=== PATIENT | male | born 1950 | race American Indian/Alaskan Native ===

== ENCOUNTER 2017-10-14 20:45 | Emergency (ER) | payer MEDICARE ==
[2017-10-14 20:45] VITALS: BMI 20.5
[2017-10-14 21:01] VITALS: TEMP 98.2
[2017-10-14 22:02] LABS: BASO % 0.2 % (0.0-2.0); EOS % 0.4 % (0.0-4.0); HEMATOCRIT 31.3 % (35.0-51.0); LYMPH # 0.5 K/uL (1.0-4.3); LYMPH % 4.6 % (20.0-40.0); MEAN CELL VOLUME 81.3 fl (80.0-94.0); MEAN CORPUSCULAR HEMOGLOBIN 25.4 pg (27.0-31.0); MEAN CORPUSCULAR HGB CONC 31.2 g/dL (33.0-37.0); MONO # 0.3 K/uL (0.0-0.8); MONO % 2.9 % (0.0-10.0); NEUT # 10.8 K/uL (1.8-7.0); NEUT % 91.9 % (50.0-75.0); PLATELET COUNT 352 K/uL (130-400); RED CELL DISTRIBUTION WIDTH 18.3 % (11.5-14.5); WHITE BLOOD COUNT 11.7 K/uL (4.8-10.8)
[2017-10-14] MEDS ORDERED: Iohexol 240 (50 ml) PO ONE (22:12)
[2017-10-14 22:18] LABS: ALKALINE PHOSPHATASE 100 U/L (38-126); ALT/SGPT 24 U/L (21-72); AST/SGOT 22 U/L (17-59); BILIRUBIN,TOTAL 0.2 mg/dl (0.2-1.3); BLOOD UREA NITROGEN 22 mg/dl (9-20); CALCIUM 8.9 mg/dL (8.4-10.2); CARBON DIOXIDE 27 mmol/L (22-30); CHLORIDE 103 mmol/L (98-107); GFR AFRICAN-AMERICAN > 60; GLUCOSE,RANDOM 97 mg/dL (75-110); LIPASE 118 U/L (23-300); SODIUM 140 mmol/l (132-148); TOTAL PROTEIN 7.2 G/DL (6.3-8.2)
[2017-10-14] MEDS ORDERED: Morphine 4 MG/ML VIAL ONE (22:22)
[2017-10-14] MEDS ORDERED: Morphine 4 MG/ML VIAL IVP ONE (22:45)
--- NOTE | 2017-10-14 23:21 | ED PDOC ---
HPI: Abdomen Time Seen by Provider: 10/14/17 21:02 Chief Complaint (Nursing): Abdominal Pain Chief Complaint (Provider): Abdominal Pain History Per: Patient History/Exam Limitations: no limitations Onset/Duration Of Symptoms: Days (2 days ago) Current Symptoms Are (Timing): Still Present Location Of Pain/Discomfort: Diffuse Additional Complaint(s): 67 y/o male with a past medical history of hypertension and "colon issues", brought in by EMS, presents to the ED complaining of abdominal pain, with an onset of 2 days ago. Patient was recently seen at [facility] about a week ago, and was discharged with a prescription for Percocet. Patient also reports of having left inguinal hernia repair with perforation, a Colostomy, that was later reversed, and endoscopy in the past, which showed a large gastroduodenal ulcer. Of note, patient denies any fever, chills, nausea or vomiting. Past Medical History Reviewed: Historical Data, Nursing Documentation, Vital Signs Vital Signs: Last Vital Signs Temp 98.2 F 10/15/17 04:32 Pulse 90 10/15/17 04:32 Resp 16 10/15/17 04:32 BP 176/95 H 10/15/17 04:32 Pulse Ox 96 10/15/17 04:32 - Medical History PMH: HTN Denies: Chronic Kidney Disease Other PMH: "Colon Issues" - Surgical History Surgical History: Endoscopy Other surgeries: left inguinal hernia repair with perforation. Colostomy, that was later reversed - Family History Family History: States: Unknown Family Hx - Social History Current smoker - smoking cessation education provided: Yes (some days) Alcohol: Occasional - Immunization History Hx Tetanus Toxoid Vaccination: No Hx Influenza Vaccination: No Hx Pneumococcal Vaccination: No - Home Medications Home Medications: Ambulatory Orders Medication Instructions Recorded Pantoprazole Sodium [Protonix] 40 mg PO DAILY #30 ect 10/10/17 Saccharomyces Boulardi [Florastor] 250 mg PO BID #60 cap 10/10/17 Sucralfate [Carafate Tab] 1 gm PO QID #120 tab 10/10/17 amLODIPine [Norvasc] 10 mg PO DAILY #30 tab 10/10/17 oxyCODONE/Acetaminophen [Percocet 1 tab PO TID PRN #12 tab 10/11/17 5/325 mg Tab] Pantoprazole Sodium [Protonix] 40 mg PO BID #28 ect 10/15/17 Sucralfate [Carafate Oral Susp] 1 gm PO QID #28 g 10/15/17 - Allergies Allergies/Adverse Reactions: Allergies Allergy/AdvReac Type Severity Reaction Status Date / Time No Known Allergies Allergy Verified 10/10/17 21:37 Review of Systems ROS Statement: Except As Marked, All Systems Reviewed And Found Negative Constitutional: Negative for: Fever, Chills Gastrointestinal: Positive for: Abdominal Pain. Negative for: Nausea, Vomiting Physical Exam - Reviewed Nursing Documentation Reviewed: Yes Vital Signs Reviewed: Yes - Physical Exam Appears: Positive for: Uncomfortable Head Exam: Positive for: ATRAUMATIC, NORMOCEPHALIC Skin: Positive for: Normal Color, Warm Eye Exam: Positive for: Normal appearance, EOMI, PERRL ENT: Positive for: Normal ENT Inspection Neck: Positive for: Normal, Painless ROM, Supple Cardiovascular/Chest: Positive for: Regular Rate, Rhythm. Negative for: Murmur Respiratory: Positive for: Normal Breath Sounds. Negative for: Respiratory Distress Gastrointestinal/Abdominal: Positive for: Tenderness (diffuse ) Back: Positive for: Normal Inspection Extremity: Positive for: Normal ROM. Negative for: Pedal Edema, Deformity - Laboratory Results Result Diagrams: 10/14/17 21:58 10/14/17 21:58 - ECG O2 Sat by Pulse Oximetry: 100 (RA) Pulse Ox Interpretation: Normal Medical Decision Making Medical Decision Making: Time: --21:29 Impression: --67 y/o male with recurrent abdominal pain in setting of previous colon disease Plan: --CT ABD Pelvis PO &IV Contrast --ECG --ED UDip --Labs --Iohexol 50ml --Morphine 4mg --Heplock Insertion --Urinalysis Reassess --01:16 FINDINGS:CT Abdomen and Pelvis With Intravenous Contrast Lower thorax: No acute findings. ABDOMEN: Liver: Unremarkable. No mass. Gallbladder and bile ducts: Mild intra-and extrahepatic bile duct dilation. Comm the common bile duct measures 8 mm. No distal common bile duct stone. Pancreas: The pancreatic duct is mildly dilated measuring 5 mm in the pancreatic head. Spleen: Unremarkable. No splenomegaly. Adrenals: Unremarkable. No mass. Kidneys and ureters: There is a simple cyst in the left kidney. There is a simple cyst in the right kidney. No hydronephrosis. Stomach and bowel: Postsurgical changes in the stomach and proximal small bowel suggesting gastrojejunostomy. The stomach and proximal small bowel are thick walled. There is a linear tract of high density in the left upper quadrant, image 17-22 series 2. This raises suspicion for possible bowel leak. The splenic flexure and descending colon are thick walled. The colon is limited by suboptimal contrast opacification. Moderately distended loop of proximal small bowel measuring up to 4 cm in diameter probably secondary to localized ileus. PELVIS: Bladder: Unremarkable. No mass. Reproductive: Unremarkable as visualized. ABDOMEN and PELVIS: Intraperitoneal space: Diffuse edema in the mesentery the abdomen and pelvis. No free air. No significant fluid collection. Bones/joints: No acute fracture. No dislocation. Soft tissues: Unremarkable. Vasculature: The aorta demonstrates moderate atherosclerotic calcification. No abdominal aortic aneurysm. Lymph nodes: Unremarkable. No enlarged lymph nodes. IMPRESSION: Postsurgical changes in the stomach and proximal small bowel suggesting gastrojejunostomy. Significant edema involving the stomach and bowel in the left upper quadrant. Linear tract tract of high density raising suspicion for possible bowel/anastomotic leak. Clinical correlation and followup recommended --01:51 Provider spoke with the certified ophthalmic surgical assistant pondman, Dr. Felix, for a consult. --04:59 patient evaluated by the certified ophthalmic surgical assistant, Dr. felix, and is stable for discharge under their perspective. diagnosis: peptic ulcer disease and abdominal pain instructions: follow up with original surgeon at [facility] Scribe Attestation: Documented by Ramsey Reyes acting as a scribe for Phani Torres MD. Disposition - Clinical Impression Clinical Impression: Abdominal pain, Peptic ulcer - Patient ED Disposition Is Patient to be Admitted: No Discussed With : Sybil Felix Doctor Will See Patient In The: ED - Disposition Disposition: Routine/Home Disposition Time: 04:59 (patient evaluated by the surgica resident dr. felix and is stable for discharge under their perspective) Condition: STABLE Prescriptions: Pantoprazole Sodium [Protonix] 40 mg PO BID #28 ect Sucralfate [Carafate Oral Susp] 1 gm PO QID #28 g Instructions: Peptic Ulcer (ED) Forms: @Pay (Armenian)
[2017-10-14] MEDS ORDERED: Iohexol 300 100 ML IJ ONE (23:51)
[2017-10-15 01:12] LABS: RBC URINE 1 /hpf (0-3); URINE BACTERIA RARE (<OCC); URINE BILIRUBIN NEGATIVE (NEGATIVE); URINE BLOOD NEGATIVE (NEGATIVE); URINE COLOR YELLOW (YELLOW); URINE GLUCOSE (UA) NEG (Normal); URINE KETONE NEGATIVE (NEGATIVE); URINE LEUKOCYTE ESTERASE NEG Leu/uL (Negative); URINE PROTEIN NEGATIVE (NEGATIVE); URINE UROBILINOGEN 0.2-1.0 mg/dL (0.2-1.0); WBC URINE 1 /hpf (0-5)
--- NOTE | 2017-10-15 01:16 | CT ---
EXAM: CT Abdomen and Pelvis With Intravenous Contrast CLINICAL HISTORY: 67 years old, male; Pain; Abdominal pain; Generalized; Prior surgery; Surgery date: 6+ months; Surgery type: Colon per patient. Hernia per patient; Additional info: Abd pain TECHNIQUE: Axial computed tomography images of the abdomen and pelvis with intravenous contrast. All CT scans at this facility use one or more dose reduction techniques, viz.: automated exposure control; ma/kV adjustment per patient size (including targeted exams where dose is matched to indication; i.e. head); or iterative reconstruction technique. Coronal and sagittal reformatted images were created and reviewed. CONTRAST: 90 mL of [id number] administered intravenously. COMPARISON: No relevant prior studies available. FINDINGS: Lower thorax: No acute findings. ABDOMEN: Liver: Unremarkable. No mass. Gallbladder and bile ducts: Mild intra-and extrahepatic bile duct dilation. Comm the common bile duct measures 8 mm. No distal common bile duct stone. Pancreas: The pancreatic duct is mildly dilated measuring 5 mm in the pancreatic head. Spleen: Unremarkable. No splenomegaly. Adrenals: Unremarkable. No mass. Kidneys and ureters: There is a simple cyst in the left kidney. There is a simple cyst in the right kidney. No hydronephrosis. Stomach and bowel: Postsurgical changes in the stomach and proximal small bowel suggesting gastrojejunostomy. The stomach and proximal small bowel are thick walled. There is a linear tract of high density in the left upper quadrant, image 17-22 series 2. This raises suspicion for possible bowel leak. The splenic flexure and descending colon are thick walled. The colon is limited by suboptimal contrast opacification. Moderately distended loop of proximal small bowel measuring up to 4 cm in diameter probably secondary to localized ileus. PELVIS: Bladder: Unremarkable. No mass. Reproductive: Unremarkable as visualized. ABDOMEN and PELVIS: Intraperitoneal space: Diffuse edema in the mesentery the abdomen and pelvis. No free air. No significant fluid collection. Bones/joints: No acute fracture. No dislocation. Soft tissues: Unremarkable. Vasculature: The aorta demonstrates moderate atherosclerotic calcification. No abdominal aortic aneurysm. Lymph nodes: Unremarkable. No enlarged lymph nodes. IMPRESSION: Postsurgical changes in the stomach and proximal small bowel suggesting gastrojejunostomy. Significant edema involving the stomach and bowel in the left upper quadrant. Linear tract tract of high density raising suspicion for possible bowel/anastomotic leak. Clinical correlation and followup recommended.
[2017-10-15 01:56] LABS: EOSINOPHIL 2 % (0-7); NEUTROPHIL 91 % (42-75); TOTAL CELLS COUNTED 100
[2017-10-15] MEDS ORDERED: Sucralfate 1 gm/10 ml Oral Susp UD PO STA (03:45)
--- NOTE | 2017-10-15 03:58 | CP.PCM.CON ---
History of Present Illness - History of Present Illness History of Present Illness: General Surgery Dr. 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 Pt was also seen in [facility] ED on 10/10 for the same abd pain. Pt has not filled or taken his PUD medication which is the cause of his continued pain. Pt was also instructed to see his previous surgeon for repair of the gastro-colonic fistula when discharged from [facility] inpatient and ED. Pt states pain has not changed in intensity, severity, or location. Pain described as burning sensation in epigastric/sub-sternal. Pt denies F/C, SOB, N/V. Pt admits to recent diarrhea but denies constipation. PMHx: HTN, PUD, non-compliance Meds: reviewed in chart NKDA PSHx: L inguinal hernia repair, ex- lap w/ colostomy 2/2 intra-op enterotomy, colostomy reversal SHx: homeless, occasional EtOH and tobacco use. denies drug use FHx: non-contributory Review of Systems - Review of Systems All systems: reviewed and no additional remarkable complaints except (see HPI) Past Patient History - Infectious Disease Hx of Infectious Diseases: None - Past Medical History & Family History Past Medical History?: Yes - Past Social History Alcohol: Occasional - CARDIAC Hx Hypertension: Yes - PULMONARY Hx Respiratory Disorders: No - NEUROLOGICAL Hx Neurological Disorder: No - HEENT Hx HEENT Problems: No - RENAL Hx Chronic Kidney Disease: No - ENDOCRINE/METABOLIC Hx Endocrine Disorders: No - HEMATOLOGICAL/ONCOLOGICAL Hx Blood Disorders: No - INTEGUMENTARY Hx Dermatological Problems: No - MUSCULOSKELETAL/RHEUMATOLOGICAL Hx Falls: No - GASTROINTESTINAL Hx Gastrointestinal Disorders: No - GENITOURINARY/GYNECOLOGICAL Hx Genitourinary Disorders: No - PSYCHIATRIC Hx Psychophysiologic Disorder: Yes Hx Substance Use: No (pt. denies) - SURGICAL HISTORY Hx Surgeries: No Other/Comment: Hernia repair. "they did something to my colon but i cant remember" - ANESTHESIA Hx Anesthesia: No Hx Anesthesia Reactions: No Hx Malignant Hyperthermia: No Meds Allergies/Adverse Reactions: Allergies Allergy/AdvReac Type Severity Reaction Status Date / Time No Known Allergies Allergy Verified 10/10/17 21:37 - Medications Medications: Current Medications Pantoprazole Sodium (Protonix Inj) 40 mg IVP STAT STA Stop: 10/15/17 03:46 Sucralfate (Carafate Oral Susp) 1 gm PO STAT STA Stop: 10/15/17 03:46 Physical Exam - Constitutional Appears: Non-toxic, No Acute Distress - Head Exam Head Exam: NORMAL INSPECTION - Eye Exam Eye Exam: Normal appearance - ENT Exam ENT Exam: Mucous Membranes Moist - Respiratory Exam Respiratory Exam: NORMAL BREATHING PATTERN. absent: Accessory Muscle Use, Respiratory Distress - Cardiovascular Exam Cardiovascular Exam: absent: Bradycardia, Tachycardia - GI/Abdominal Exam GI & Abdominal Exam: Guarding (voluntary), Soft, Tenderness (diffuse TTP). absent: Distended, Firm, Rebound, Rigid - Extremities Exam Extremities exam: Positive for: normal inspection - Neurological Exam Neurological exam: Alert, Oriented x3 - Psychiatric Exam Psychiatric exam: Normal Affect, Normal Mood - Skin Skin Exam: Dry, Intact, Normal Color, Warm Results - Vital Signs Recent Vital Signs: Last Vital Signs Temp 98.2 F 10/14/17 20:59 Pulse 85 10/15/17 00:54 Resp 14 10/15/17 00:54 BP 179/102 H 10/15/17 00:54 Pulse Ox 100 10/15/17 01:52 - Labs Result Diagrams: 10/14/17 21:58 10/14/17 21:58 Labs: Laboratory Results - last 24 hr 10/14/17 10/14/17 10/14/17 21:58 21:58 21:58 WBC 11.7 H RBC 3.85 L Hgb 9.8 L Hct 31.3 L MCV 81.3 MCH 25.4 L MCHC 31.2 L RDW 18.3 H Plt Count 352 MPV 8.0 Neut % (Auto) 91.9 H Lymph % (Auto) 4.[address] [facility] % (Auto) 2.9 Eos % (Auto) 0.4 Baso % (Auto) 0.2 Neut # 10.8 H Lymph # 0.[address] [facility] # 0.3 Eos # 0.0 Baso # 0.0 Neutrophils % (Manual) 91 H Lymphocytes % (Manual) 6 L Monocytes % (Manual) 1 Eosinophils % (Manual) 2 Platelet Estimate Normal Poikilocytosis (manual Slight Anisocytosis (manual) Slight Ovalocytes Slight Schistocytes Slight Sodium 140 Potassium 4.0 Chloride 103 Carbon Dioxide 27 Anion Gap 14 BUN 22 H Creatinine 0.8 Est GFR ( Amer) > 60 Est GFR (Non-Af Amer) > 60 Random Glucose 97 Lactic Acid 1.2 Calcium 8.9 Total Bilirubin 0.2 AST 22 ALT 24 Alkaline Phosphatase 100 Total Protein 7.2 Albumin 3.7 Globulin 3.5 Albumin/Globulin Ratio 1.0 Lipase 118 Urine Color Urine Clarity Urine pH Ur Specific [place] Urine Protein Urine Glucose (UA) Urine Ketones Urine Blood Urine Nitrate Urine Bilirubin Urine Urobilinogen Ur Leukocyte Esterase Urine RBC (Auto) Urine Microscopic WBC Urine Bacteria 10/15/17 01:07 WBC RBC Hgb Hct MCV MCH MCHC RDW Plt Count MPV Neut % (Auto) Lymph % (Auto) [facility] % (Auto) Eos % (Auto) Baso % (Auto) Neut # Lymph # [facility] # Eos # Baso # Neutrophils % (Manual) Lymphocytes % (Manual) Monocytes % (Manual) Eosinophils % (Manual) Platelet Estimate Poikilocytosis (manual Anisocytosis (manual) Ovalocytes Schistocytes Sodium Potassium Chloride Carbon Dioxide Anion Gap BUN Creatinine Est GFR ( Amer) Est GFR (Non-Af Amer) Random Glucose Lactic Acid Calcium Total Bilirubin AST ALT Alkaline Phosphatase Total Protein Albumin Globulin Albumin/Globulin Ratio Lipase Urine Color Yellow Urine Clarity Clear Urine pH 6.0 Ur Specific [place] 1.018 Urine Protein Negative Urine Glucose (UA) Neg Urine Ketones Negative Urine Blood Negative Urine Nitrate Negative Urine Bilirubin Negative Urine Urobilinogen 0.2-1.0 Ur Leukocyte Esterase Neg Urine RBC (Auto) 1 Urine Microscopic WBC 1 Urine Bacteria Rare - Imaging and Cardiology CT scan - abdomen Status: Image reviewed by me, Report reviewed by me Assessment & Plan - Assessment and Plan (Free Text) Assessment: 67 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 Pylori - Pt needs to see his previous surgeon for operative management - pt should f/u w/ GI - Dr. Harrell - No surgical intervention at this time. Pt discussed w/ Dr. Melecio Felix DO PGY2
[2017-10-15] MEDS ORDERED: Sucralfate 1 gm/10 ml Oral Susp UD ONE (04:23)
[2017-10-15] MEDS ORDERED: Morphine 4 MG/ML VIAL ONE (04:23)
[2017-10-15] MEDS ORDERED: Sterile Water 10 ML IV ONE (04:24)
[2017-10-15 04:33] VITALS: BP 176/95; PULSE 90; RESP 16
[2017-10-15 05:02] VITALS: O2SAT 100
== END 2017-10-15 06:58 | disposition home or self-care (01) ==
LOC: H.ER 20:45
DX: K26.9 Duodenal ulcer, unspecified as acute or chronic, without hemorrhage or perforation (principal); Z59.0 Homelessness; I10 Essential (primary) hypertension; Z87.11 Personal history of peptic ulcer disease; F17.200 Nicotine dependence, unspecified, uncomplicated; K25.9 Gastric ulcer, unspecified as acute or chronic, without hemorrhage or perforation
CPT/HCPCS: 74177; 80053; 81003; 83605; 83690; 85025; 96374; 96375; 96376; 99283; C9113; J2270; Q9966; Q9967